=== PATIENT | male | born 1985 | race American Indian/Alaskan Native ===

== ENCOUNTER 2016-11-12 08:27 | Inpatient (IN) | payer OTHER, MEDICARE ==
[2016-11-12] MEDS ORDERED: DECADRON ONE (08:43)
[2016-11-12] MEDS ORDERED: PEPCID IV ONE ×4 (08:44→08:51)
[2016-11-12] MEDS ORDERED: BENADRYL ONE (08:45)
[2016-11-12] MEDS ORDERED: DECADRON IV ONE (08:48)
[2016-11-12] MEDS ORDERED: BENADRYL IV ONE (08:48)
--- NOTE | 2016-11-12 10:36 | Emergency Department Report ---
HPI - General Chief Complaint: Allergic Reaction Time Seen by Provider: 11/12/16 10:22 - HPI HPI: Room 18 The patient is a 31-year-old male presenting with a chief complaint of tongue swelling. The patient states last night he went to sleep in his usual state of health and at approximately 07:15 this morning he awakened and noticed pain and swelling to the left side of his tongue. Patient states she use ice to see if it would help but the swelling did not improve. The patient states he subsequently came to the ED for evaluation. The patient does admit to slight shortness of breath but denies fever, sore throat or cough. The patient denies taking any medications. Patient denies any new exposures to food or toothpaste. Location: Tongue Duration: Constant since 07:15 Quality: Pain Severity: Moderate Modifying factors: [see above] Context: [see above] Mode of transportation: [not driving] ED Past Medical Hx - Surgical History Hx Appendectomy: Yes - Family History Family history: no significant - Social History Smoking Status: Current Every Day Smoker (1/3 pack per day) Substance Use Type: None - Medications Home Medications: Home Medications Medication Instructions Recorded Confirmed Last Taken Type HYDROcodone/APAP 5-325 [[place] 1 each PO Q6HR PRN #10 tablet 05/11/14 Unknown Rx 5-325 mg TAB] Ibuprofen [Motrin] 800 mg PO Q8H PRN #14 tablet 05/11/14 Unknown Rx Cephalexin [Keflex] 500 mg PO Q6H #40 capsule 05/21/14 Unknown Rx HYDROcodone/APAP 7.5-325 [[place] 1 each PO Q6HR PRN #20 tablet 05/21/14 Unknown Rx 7.5/325 mg] Ibuprofen [Motrin] 600 mg PO Q8H PRN #60 tablet 05/21/14 Unknown Rx ED Review of Systems ROS: Stated complaint: RUT/TONGUE SWELLING Other details as noted in HPI Comment: All other systems reviewed and negative Constitutional: denies: chills, fever ENT: dental pain, other (tongue pain and swelling) Respiratory: shortness of breath Cardiovascular: denies: chest pain, palpitations Endocrine: no symptoms reported Gastrointestinal: denies: abdominal pain, nausea, diarrhea Genitourinary: denies: urgency, dysuria Musculoskeletal: denies: back pain, joint swelling, arthralgia Skin: denies: rash, lesions Neurological: denies: headache, weakness, paresthesias Psychiatric: denies: anxiety, depression Hematological/Lymphatic: denies: easy bleeding, easy bruising Physical Exam - Physical Exam Vital Signs: Vital Signs 11/12/16 11/12/16 11/12/16 08:36 08:42 08:50 Temperature 97.8 F Pulse Rate 54 L Respiratory 20 Rate Blood Pressure 126/87 O2 Sat by Pulse 100 100 100 Oximetry 11/12/16 11/12/16 11/12/16 09:00 09:10 09:20 Temperature Pulse Rate Respiratory Rate Blood Pressure 105/60 104/63 O2 Sat by Pulse 100 89 100 Oximetry 11/12/16 11/12/16 09:30 09:40 Temperature Pulse Rate Respiratory Rate Blood Pressure 109/64 109/64 O2 Sat by Pulse 100 100 Oximetry Physical Exam: GENERAL: The patient is well-developed well-nourished male sleeping on stretcher not appearing to be in acute distress. [] HEENT: Normocephalic. Atraumatic. Extraocular motions are intact. Patient has moist mucous membranes. Glossal swelling noted. No erythema or gingival ecchymosis appreciated. No trismus. Normal phonation NECK: Supple. No meningitic signs are noted. There is no adenopathy noted. No stridor CHEST/LUNGS: Clear to auscultation. There is no respiratory distress noted. HEART/CARDIOVASCULAR: Regular. There is no tachycardia. There is no gallop rub or murmur. ABDOMEN: Abdomen is soft, nontender. Patient has normal bowel sounds. There is no abdominal distention. SKIN: There is no rash. There is no edema. There is no diaphoresis. NEURO: The patient is awake, alert, and oriented. The patient is cooperative. The patient has normal speech MUSCULOSKELETAL: There is no evidence of acute injury. ED Course Vital Signs 11/12/16 11/12/16 11/12/16 08:36 08:42 08:50 Temperature 97.8 F Pulse Rate 54 L Respiratory 20 Rate Blood Pressure 126/87 O2 Sat by Pulse 100 100 100 Oximetry 11/12/16 11/12/16 11/12/16 09:00 09:10 09:20 Temperature Pulse Rate Respiratory Rate Blood Pressure 105/60 104/63 O2 Sat by Pulse 100 89 100 Oximetry 11/12/16 11/12/16 09:30 09:40 Temperature Pulse Rate Respiratory Rate Blood Pressure 109/64 109/64 O2 Sat by Pulse 100 100 Oximetry ED Medical Decision Making - Lab Data Result diagrams: 11/12/16 11:44 11/12/16 11:44 Laboratory Tests 11/12/16 11/12/16 11:44 11:44 WBC 5.8 RBC 5.43 H Hgb 14.0 Hct 44.8 MCV 83 L MCH 26 L MCHC 31 L RDW 14.8 Plt Count 70 L Lymph % (Auto) 18.3 [place] % (Auto) 3.5 Eos % (Auto) 3.2 Baso % (Auto) 0.5 Lymph # 1.1 L [place] # 0.2 Eos # 0.2 Baso # 0.0 Seg Neutrophils % 74.5 H Seg Neutrophils # 4.3 Sodium 140 Potassium 4.9 Chloride 106.2 Carbon Dioxide 22 Anion Gap 17 BUN 10 Creatinine 1.0 Estimated GFR > 60 BUN/Creatinine Ratio 10.00 Glucose 98 Calcium 8.7 - Radiology Data Radiology results: report reviewed (CT neck), image reviewed (CT neck) CT neck (read by radiologist)-unremarkable CT neck. - Differential Diagnosis angioedema, glossitis, Melo angina, Critical care attestation.: If time is entered above; I have spent that time in minutes in the direct care of this critically ill patient, excluding procedure time. ED Disposition Clinical Impression: Tongue swelling, Shortness of breath Disposition: OP ADMITTED IP TO THIS HOSP Is pt being admited?: Yes Does the pt Need Aspirin: Yes Condition: Fair Referrals: MASHA DAVIS MD [Primary Care Provider] - 3-5 Days Time of Disposition: 14:21 (hospitalist paged)
--- NOTE | 2016-11-12 11:22 | Admit Criteria Form ---
Admission Criteria Documentation: HEAD AND NECK DISEASE [facility] Clinical Indications for Admission to Inpatient Care ( Place 'X' for any and all applicable criteria): Hospital admission is needed for appropriate care of the patient because of ANY ONE of the following (1)(2): [ ]I. Severe sinusitis as indicated by ANY ONE of the following (6)(13)(21) [ ]a) Suspected PUBLIC INFORMATION RELATIONS MANAGER infection [ ]b) Bacteremia [ ]c) Hemodynamic instability [ ]d) Outpatient and observation care antibiotic treatment have failed or are not considered appropriate [ ]e) Surgical drainage needed that cannot be performed on an outpatient basis or observation. setting [ ]f) Suspected orbital involvement [ ]II. Acute glaucoma unresponsive to emergency treatment that requires medication or other treatment beyond the scope of observation care (1) [ ]III. Severe eye infection or inflammation (eg, uveitis) which is unresponsive to emergency treatment and requires medication or other treatment beyond the scope of observation care (1)(2)(3)(4) [ ]IV. Severe epistaxis requiring posterior packing (5)(6) [ ]V. Acute bacterial labyrinthitis(6)(7) [ ]. Viral labyrinthitis with symptoms uncontrollable on an outpatient or observation care basis (6)(7) [ ]VII. Severe necrotizing external otitis unresponsive to outpatient and observation care treatment(6) [ ]VIII. Otitis media requiring treatment beyond the scope of outpatient and observation care, as indicated by presence or persistence of ANY ONE of the following(6)(8)(9): [ ]a) Hemodynamic instability [ ]b) Mastoiditis [ ]c) Suspected PUBLIC INFORMATION RELATIONS MANAGER infection [ ]d) Bacteremia [ ]e) Surgical drainage needed that cannot be performed as an outpatient. or in an observation setting. [ ]IX. Epiglottitis or supraglottitis(6)(11)(12)(13)(14) [ ]X. Stridor or laryngospasm (unresponsive to emergency management) (6)(11)( 12)(13)(14) [ ]XI. Acute pharyngitis or tonsillitis and ANY ONE of the following (14)(15)( 16): [ ]a) Hemodynamic instability remaining after emergency or observation level care (as appropriate) [ ]b) Surgical drainage needed that cannot be performed in outpatient or observation setting [ ]c) Mediastinitis [ ]d) Thrombophlebitis of internal jugular vein (Lemierre syndrome) [ ]XII. Sialoadenitis and ANY ONE of the following (17) (18) [ ]a) Hemodynamic instability remaining after emergency or observation level care(as appropriate) [ ]b) Surgical drainage needed that cannot be performed in outpatient or observation setting [ ]XIII. Airway blockage or inability to swallow (6)(12)(19)(20) [ ]XIV.Complicated infection indicated by ANY ONE of the following(6)(13)(21)(22 ): [ ]a) Abscess or swelling causing airway difficulty(12) [ ]b) Bacteremia [ ]c) Hemodynamic instability [ ]d) Suspected PUBLIC INFORMATION RELATIONS MANAGER infection [ ]e) Outpatient and observation care antibiotic treatment have failed or are not considered appropriate [ ]f) Surgical drainage needed that cannot be performed on an outpatient basis or observation setting [ ]g) Other management need that cannot be performed in outpatient or observation setting: [ ]XV. Severe trauma requiring inpatient medical treatment of eye, head, pharynx, or airway (1)(23)([phone]) [ ]XVI. Ischemic optic neuropathy(11) [X]XVII.Head or Neck Disease condition and ANY ONE of the following: [ X]a) Symptom or finding for which emergency and observation care have failed or are not considered appropriate (Also use General Criteria: Observation Care as appropriate) [ ]b) Presence of ANY ONE of the following: [ ]i) A General Admission Criteria [ ]ii) A Pediatric General Admission Criteria The original [facility] content created by [facility] has been revised. The portions of the content which have been revised are identified through the use of italic text or in bold, and [facility] has neither reviewed nor approved the modified material. All other unmodified content is copyright [facility]. Please see references footnoted in the original [facility] edition 2016 Admission Criteria Met: Yes
[2016-11-12 12:00] LABS: Basophils % (Auto) 0.5 % (0.0-1.8); Eosinophils % (Auto) 3.2 % (0.0-4.3); Hematocrit 44.8 % (35.5-45.6); Mean Corpuscular HGB Conc 31 % (32-34); Mean Corpuscular Volume 83 fl (84-94); Red Blood Count 5.43 M/mm3 (3.65-5.03); Red Cell Distribution Width 14.8 % (13.2-15.2); White Blood Count 5.8 K/mm3 (4.5-11.0)
[2016-11-12 12:01] LABS: Mean Corpuscular Hemoglobin 26 pg (28-32); Platelet Count 70 K/mm3 (140-440)
[2016-11-12 12:19] LABS: Anion Gap 17 mmol/L; Blood Urea Nitrogen 10 mg/dL (9-20); Calcium 8.7 mg/dL (8.4-10.2); Carbon Dioxide 22 mmol/L (22-30); Chloride 106.2 mmol/L (98-107); Glucose 98 mg/dL (75-100); Potassium 4.9 mmol/L (3.6-5.0); Sodium 140 mmol/L (137-145)
[2016-11-12] MEDS ORDERED: NACL ONE (13:28)
--- NOTE | 2016-11-12 14:13 | Cat Scan Report ---
CT NECK WITH CONTRAST: HISTORY: Tongue swelling, angioedema. TECHNIQUE: Helical CT following IV contrast. Sagittal and coronal reformatted images. FINDINGS: The parotid and submandibular glands are normal. The carotid sheaths are intact. There is no evidence of adenopathy within the neck. The thyroid gland is normal. The glottic structures are normal. The airway is patent. Strap musculature is unremarkable. Hyoid bone and thyroid cartilage are intact. IMPRESSION: Unremarkable CT neck.
--- NOTE | 2016-11-12 15:47 | History and Physical Report ---
History of Present Illness Date of examination: 11/12/16 Date of admission: 11/12/16 Chief complaint: Swelling of tongue History of present illness: 31 Y/o AAM comes in for swelling of tongue and lips from AM.Attributes it to Ibuprofen.Not on BREE inhibitors.No difficulty in swallowing .No difficulty in breathing. Past History Past Medical History: No medical history Medications and Allergies Allergies Allergy/AdvReac Type Severity Reaction Status Date / Time No Known Allergies Allergy Unverified 05/11/14 11:36 Home Medications Medication Instructions Recorded Confirmed Last Taken Type Ibuprofen [Motrin] 600 mg PO Q8H PRN #60 tablet 05/21/14 11/12/16 11/11/16 Rx Review of Systems All systems: negative Ears, nose, mouth and throat: swelling in mouth (Tongue and lips-swollen but not significantly) Exam - Constitutional Vitals: Temp Pulse Resp BP Pulse Ox 97.8 F 54 L 16 105/58 100 11/12/16 08:36 11/12/16 08:36 11/12/16 11:47 11/12/16 13:10 11/12/16 13:10 General appearance: Present: no acute distress, well-nourished - EENT Eyes: Present: PERRL ENT: hearing intact, clear oral mucosa, other (Swelling of Tongoe mild to moderate Also lips) - Neck Neck: Present: supple, normal ROM - Respiratory Respiratory effort: normal Respiratory: bilateral: CTA - Cardiovascular Heart Sounds: Present: S1 & S2. Absent: rub, click - Extremities Extremities: pulses symmetrical, No edema Peripheral Pulses: within normal limits - Abdominal General gastrointestinal: Present: soft, non-tender, non-distended, normal bowel sounds Male genitourinary: Present: normal - Integumentary Integumentary: Present: clear, warm, dry - Musculoskeletal Musculoskeletal: gait normal, strength equal bilaterally - Psychiatric Psychiatric: appropriate mood/affect, intact judgment & insight - Neurologic Neurologic: CNII-XII intact, moves all extremities Results - Labs CBC & Chem 7: 11/12/16 11:44 11/12/16 11:44 Labs: Abnormal lab results 11/12/16 Range/Units 11:44 RBC 5.43 H (3.65-5.03) M/mm3 MCV 83 L (84-94) fl MCH 26 L (28-32) pg MCHC 31 L (32-34) % Plt Count 70 L (140-440) K/mm3 Lymph # 1.1 L (1.2-5.4) K/mm3 Seg Neutrophils % 74.5 H (40.0-70.0) % Short CBC 11/12/16 Range/Units 11:44 WBC 5.8 (4.5-11.0) K/mm3 Hgb 14.0 (11.8-15.2) gm/dl Hct 44.8 (35.5-45.6) % Plt Count 70 L (140-440) K/mm3 BMP 11/12/16 11:44 Sodium 140 Potassium 4.9 Chloride 106.2 Carbon Dioxide 22 BUN 10 Creatinine 1.0 Glucose 98 Calcium 8.7 Assessment and Plan - Patient Problems (1) Angioedema Current Visit: Yes Status: Acute Qualifiers: Encounter type: initial encounter Qualified Code(s): T78.3XXA - Angioneurotic edema, initial encounter Plan to address problem: Mild to moderate.Will observe for one day and discharge on oral prednisone and pepcid. Not to use NSAIDS in future. Or BREE inhibitors. (2) DVT prophylaxis Current Visit: Yes Status: Acute Plan to address problem: Lovenox
[2016-11-12] MEDS ORDERED: BENADRYL IV PRN (16:08)
[2016-11-12] MEDS ORDERED: NACL 0.9% 1000 ML 1,000 ML IV ONE (17:15)
[2016-11-12] MEDS: LOVENOX SUB-Q SCH (17:21)
[2016-11-12 22:29] VITALS: BP 132/61
[2016-11-12] MEDS: PEPCID IV SCH (22:46)
[2016-11-13] MEDS: PEPCID IV SCH (09:55)
[2016-11-13] MEDS: LOVENOX SUB-Q SCH (09:56)
--- NOTE | 2016-11-13 12:52 | Discharge Summary ---
Providers - Providers Date of Admission: 11/12/16 14:21 Date of discharge: 11/13/16 Attending physician: KAE LAL MD Primary care physician: MASHA DAVIS Hospitalization Reason for admission: angioedema Condition: Stable Hospital course: The patient is a 31-year-old male presenting with a chief complaint of tongue swelling. The patient states last night he went to sleep in his usual state of health and at approximately 07:15 this morning he awakened and noticed pain and swelling to the left side of his tongue. Patient states she use ice to see if it would help but the swelling did not improve. The patient states he subsequently came to the ED for evaluation. The patient does admit to slight shortness of breath but denies fever, sore throat or cough. The patient denies taking any medications. Patient denies any new exposures to food or toothpaste. The only new medication he has taken his ibuprofen. He denies any use of Nathan inhibitor or any new food supplements. Patient was started on steroid therapy with PPI and also Benadryl with remarkable improvement this morning his swelling is significantly down to nonexistent she is tolerated diet also started for full border of this afternoon and tolerated it well. He is stable for discharge I have advised him to avoid NSAIDs at this time until evaluated by PCP and possibly may need allergy testing as we cannot pinpoint a particular allergen neck caused this. Imaging of the neck was negative. Discharge diagnosis * Idiopathic angioedema * Acute respiratory failure secondary to angioedema-now resolved Disposition: DISCHARGED TO HOME OR SELFCARE Time spent for discharge: 35 mins Core Measure Documentation - Palliative Care Palliative Care/ Comfort Measures: Not Applicable - Core Measures Any of the following diagnoses?: none - VTE Discharge Requirements Deep Vein Thrombosis/Pulmonary Embolism Present on Admission: No Exam - Physical Exam Narrative exam: VITAL SIGNS: Reviewed. GENERAL: The patient appeared well nourished and normally developed. Vital signs as documented. HEAD: No signs of head trauma. EYES: Pupils are equal. Extraocular motions intact. EARS: Hearing grossly intact. MOUTH: Oropharynx is normal. NECK: No adenopathy, no JVD. Supple CHEST: Chest with clear breath sounds bilaterally. No wheezes, rales, or rhonchi. CARDIAC: Regular rate and rhythm. S1 and S2, without murmurs, gallops, or rubs. VASCULAR: No Edema. Peripheral pulses normal and equal in all extremities. ABDOMEN: Soft, without detectable tenderness. No sign of distention. No rebound or guarding, and no masses palpated. Bowel Sounds normal. MUSCULOSKELETAL: Good range of motion of all major joints. Extremities without clubbing, cyanosis or edema. NEUROLOGIC EXAM: Alert and oriented x 3. No focal sensory or strength deficits. Speech normal. Follows commands. PSYCHIATRIC: Mood normal. SKIN: No rash or lesions. - Constitutional Vitals: Temp Pulse Resp BP Pulse Ox 98.7 F 76 18 132/61 99 11/12/16 22:28 11/12/16 22:28 11/12/16 22:28 11/12/16 22:28 11/12/16 22:28 Plan Activity: advance as tolerated Diet: regular Follow up with: MASHA DAVIS MD [Primary Care Provider] - 3-5 Days Prescriptions: Famotidine [Pepcid] 20 mg PO BID #20 tablet Prednisone [predniSONE 5 mg (6-Day Pack, 21 Tabs)] 5 mg PO .TAPER #1 tab.ds.pk
== END 2016-11-13 14:04 | disposition home or self-care (01) | DRG 915 ==
LOC: ED 08:27 → 3A 14:21
PROVIDERS: ADMIT Internal Medicine; ATTEND Internal Medicine
DX: T78.3XXA Angioneurotic edema, initial encounter (principal); J96.00 Acute respiratory failure, unspecified whether with hypoxia or hypercapnia; F17.210 Nicotine dependence, cigarettes, uncomplicated; Z90.49 Acquired absence of other specified parts of digestive tract; Z79.899 Other long term (current) drug therapy
CPT/HCPCS: 36415; 70491; 80048; 85025; 96374; 96375; J1100; J1200; J1650; J2930; J7030; Q9967

== ENCOUNTER 2017-10-17 17:22 | Emergency (ER) | payer MEDICARE, OTHER ==
[2017-10-17] MEDS ORDERED: ceFAZolin 1 GM in NACL 0.9% 100 ML IV ONE (17:46)
[2017-10-17] MEDS ORDERED: ZOFRAN IV ONE (17:48)
[2017-10-17] MEDS ORDERED: MORPHINE IV ONE ×2 (17:48→19:12)
[2017-10-17] MEDS ORDERED: ZOFRAN ONE (17:50)
[2017-10-17] MEDS ORDERED: MORPHINE ONE (17:51)
[2017-10-17] MEDS ORDERED: BOOSTRIX IM ONE (18:45)
[2017-10-17] MEDS ORDERED: TENIVAC IM ONE (19:00)
[2017-10-17] MEDS ORDERED: ceFAZolin 1 GM in NACL 0.9% 20 ML IV ONE (19:00)
[2017-10-17] MEDS ORDERED: NACL 0.9% IR ONE (20:12)
[2017-10-17] MEDS ORDERED: XYLOCAINE 1% 20 mL ONE (20:56)
--- NOTE | 2017-10-17 21:31 | XRay Report ---
FINAL REPORT PROCEDURE: XRAY FINGER RIGHT TECHNIQUE: RIGHT hand radiographs, AP, lateral, and oblique views. CPT 16397-AS HISTORY: rt middle finger injury COMPARISON: No prior studies are available for comparison. FINDINGS: Fracture (s) and/or Dislocation(s): There is a comminuted fracture involving the 3rd proximal phalanx. There are associated irregular radiopaque foreign body fragments.. Alignment: Joint alignment is within normal limits.. Joint space(s): Normal . Soft tissues: Normal . Bone mineralization: Normal . Foreign bodies: Irregular radiopaque foreign body fragments are identified in relation to the 3rd proximal phalangeal fracture largest measuring 4 millimeters.. IMPRESSION: Comminuted acute fracture 3rd proximal phalanx associated with foreign body fragments..
[2017-10-17 22:22] LABS: Amphetamine Screen,Urine PRESUMPTIVE NEGATIVE; Benzodiazepines Screen,Urine PRESUMPTIVE NEGATIVE; Cocaine Screen,Urine PRESUMPTIVE NEGATIVE; Methadone Screen,Urine PRESUMPTIVE NEGATIVE
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
[2017-10-17 22:37] LABS: Cannabinoid Screen,Urine PRESUMPTIVE POSITIVE; Opiate Screen,Urine PRESUMPTIVE POSITIVE
[2017-10-17] MEDS ORDERED: MARCAINE 0.5% 30 ML INFILTRATI ONE (23:19)
[2017-10-17] MEDS ORDERED: MARCAINE 0.5% INFILTRATI ONE (23:29)
[2017-10-17] MEDS ORDERED: XYLOCAINE 1% 20 mL INFILTRATI ONE (23:30)
[2017-10-18] MEDS ORDERED: ZOFRAN IV ONE (02:14)
[2017-10-18 02:50] VITALS: BP 136/84
== END 2017-10-18 02:30 | disposition home or self-care (01) ==
LOC: ED 17:22
DX: S62.612B Displaced fracture of proximal phalanx of right middle finger, initial encounter for open fracture (principal); S61.401A Unspecified open wound of right hand, initial encounter; W34.09XA Accidental discharge from other specified firearms, initial encounter; Y93.89 Activity, other specified; Y92.89 Other specified places as the place of occurrence of the external cause; Y99.8 Other external cause status
CPT/HCPCS: 29125; 73140; 80307; 90471; 90715; 96365; 96366; 96375; 96376; 99284; J0690; J2270; J2405; 90714

== ENCOUNTER 2017-10-19 18:18 | Emergency (ER) | payer SELFPAY ==
[2017-10-19 19:04] VITALS: BP 137/92
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
== END 2017-10-20 09:11 | disposition left against medical advice (07) ==
LOC: ED 18:18
DX: Z53.21 Procedure and treatment not carried out due to patient leaving prior to being seen by health care provider (principal)

== ENCOUNTER 2018-04-23 16:42 | Emergency (ER) | payer MEDICARE, OTHER ==
[2018-04-23] MEDS ORDERED: TORADOL IM ONE (18:05)
--- NOTE | 2018-04-23 18:21 | Emergency Department Report ---
ED Back Pain/Injury HPI - General Chief Complaint: Back Pain/Injury Stated Complaint: BACK PAIN Time Seen by Provider: 04/23/18 18:04 Source: patient, family Limitations: No Limitations - History of Present Illness Initial Comments: This is a 33-year-old male nontoxic, well nourished in appearance, no acute signs of distress presents to the ED with c/o of acute on chronic upper back pain x2 months. 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 Patient states that pain radiates through to his right upper extremity and tingling. Patient denies any numbness. Patient denies any trauma. Denies any bladder or bowel instability. Patient denies any urinary symptoms. Denies any fever, chills, nausea, vomiting, headache, stiff neck, chest pain or shortness of breath. Patient denies any numbness. Denies any allergies. Denies significant past medical history. MD Complaint: back pain -: month(s) (2) Similar Symptoms Previously: Yes Place: work Radiation: other (right upper arm) Severity: mild Severity scale (0 -10): 8 Quality: aching Consistency: constant Improves With: immobilization, supine Worsens With: movement Context: turning/twisting Associated Symptoms: denies: confusion, weakness, chest pain, numbness, difficulty walking, cough, difficulty urinating, diaphoresis, incontinence, fever/chills, constipation, headaches, abdominal pain, loss of appetite, malaise , nausea/vomiting, rash, seizure, shortness of breath, syncope - Related Data Previous Rx's Medication Instructions Recorded Last Taken Type Cephalexin [Keflex] 500 mg PO Q6HR #24 capsule 10/18/17 Unknown Rx oxyCODONE /ACETAMINOPHEN [Percocet 2 tab PO Q6HR PRN #20 tablet 10/18/17 Unknown Rx 5/325] Cyclobenzaprine [Flexeril] 10 mg PO BID PRN #14 tablet 04/23/18 Unknown Rx Ibuprofen [Motrin] 600 mg PO Q8H PRN #30 tablet 04/23/18 Unknown Rx Allergies Allergy/AdvReac Type Severity Reaction Status Date / Time No Known Allergies Allergy Unverified 05/11/14 11:36 ED Review of Systems ROS: Stated complaint: BACK PAIN Other details as noted in HPI Constitutional: denies: chills, fever Eyes: denies: eye pain, eye discharge, vision change ENT: denies: ear pain, throat pain Respiratory: denies: cough, shortness of breath, wheezing Cardiovascular: denies: chest pain, palpitations Endocrine: no symptoms reported Gastrointestinal: denies: abdominal pain, nausea, diarrhea Genitourinary: denies: urgency, dysuria Musculoskeletal: back pain. denies: joint swelling, arthralgia Skin: denies: rash, lesions Neurological: denies: headache, weakness, paresthesias Psychiatric: denies: anxiety, depression Hematological/Lymphatic: denies: easy bleeding, easy bruising ED Past Medical Hx - Past Medical History Hx Congestive Heart Failure: No Hx Diabetes: No Hx Asthma: No Hx COPD: No - Surgical History Hx Appendectomy: Yes (11 yrs old) - Social History Smoking Status: Current Every Day Smoker Substance Use Type: None - Medications Home Medications: Home Medications Medication Instructions Recorded Confirmed Last Taken Type Cephalexin [Keflex] 500 mg PO Q6HR #24 capsule 10/18/17 Unknown Rx oxyCODONE /ACETAMINOPHEN [Percocet 2 tab PO Q6HR PRN #20 tablet 10/18/17 Unknown Rx 5/325] Cyclobenzaprine [Flexeril] 10 mg PO BID PRN #14 tablet 04/23/18 Unknown Rx Ibuprofen [Motrin] 600 mg PO Q8H PRN #30 tablet 04/23/18 Unknown Rx ED Physical Exam - General Limitations: No Limitations General appearance: alert, in no apparent distress - Head Head exam: Present: atraumatic, normocephalic - Eye Eye exam: Present: normal appearance Pupils: Present: normal accommodation - ENT ENT exam: Present: normal exam, mucous membranes moist - Neck Neck exam: Present: normal inspection, full ROM. Absent: tenderness, meningismus, lymphadenopathy - Respiratory Respiratory exam: Present: normal lung sounds bilaterally. Absent: respiratory distress, wheezes, rales, rhonchi, stridor, chest wall tenderness, accessory muscle use, decreased breath sounds, prolonged expiratory - Cardiovascular Cardiovascular Exam: Present: regular rate, normal rhythm, normal heart sounds. Absent: bradycardia, tachycardia, irregular rhythm, systolic murmur, diastolic murmur, rubs, gallop - GI/Abdominal GI/Abdominal exam: Present: soft, normal bowel sounds - Rectal Rectal exam: Present: deferred - Extremities Exam Extremities exam: Present: normal inspection, full ROM, normal capillary refill. Absent: tenderness - Back Exam Back exam: Present: normal inspection, full ROM, paraspinal tenderness ( cervical paraspinal). Absent: tenderness, CVA tenderness (R), CVA tenderness (L ), muscle spasm, vertebral tenderness, rash noted - Neurological Exam Neurological exam: Present: alert, oriented X3, normal gait - Psychiatric Psychiatric exam: Present: normal affect, normal mood - Skin Skin exam: Present: warm, dry, intact, normal color. Absent: rash ED Course Vital Signs 04/23/18 04/23/18 16:44 18:24 Temperature 98.8 F 98.6 F Pulse Rate 78 64 Respiratory 15 18 Rate Blood Pressure 98/50 Blood Pressure 134/81 [Left] O2 Sat by Pulse 98 100 Oximetry - Reevaluation(s) Reevaluation #1: 04/23/18 18:26 Patient is speaking in full sentences with no signs of distress noted. ED Medical Decision Making - Medical Decision Making This is a 33-year-old male that presents with upper back strain. Patient is stable was examined by me. There is no spinal tenderness. There is no cauda equina syndrome during examination. No bladder or bowel instability. Patient received Toradol 30 mg IM in the ED which preceded his symptoms has resolved and subsided. Patient is discharged with muscle relaxant and Motrin. Patient was instructed not to operate any machinery while taking muscle relaxant as they cause her drowsiness. Patient was referred to Follow-up with a primary care doctor in 3-5 days or if symptoms worsen and continue return to emergency room as soon as possible. At time of discharge, the patient does not seem toxic or ill in appearance. No acute signs of distress noted. Patient agrees to discharge treatment plan of care. No further questions noted by the patient. This chart is dictated with using [employer] Critical care attestation.: If time is entered above; I have spent that time in minutes in the direct care of this critically ill patient, excluding procedure time. ED Disposition Clinical Impression: Cervical muscle strain Qualifiers: Encounter type: initial encounter Qualified Code(s): S16.1XXA - Strain of muscle, fascia and tendon at neck level, initial encounter Disposition: TO HOME OR SELFCARE Is pt being admited?: No Does the pt Need Aspirin: No Condition: Stable Instructions: Muscle Strain (ED), Cyclobenzaprine (By mouth), Ibuprofen (By mouth) Additional Instructions: Follow-up with your primary care doctor in 3-5 days or if symptoms worsen such as bladder or bowel stability, chest pain, short of breath, numbness or tingling sensation in extremities, headache, dizziness, visual changes, nausea vomiting, or abdominal pain, return back to emergency room as was possible. Take ibuprofen and Flexeril as prescribed. Do not operate heavy machinery while taking Flexeril due to sedation Prescriptions: Cyclobenzaprine [Flexeril] 10 mg PO BID PRN #14 tablet PRN Reason: Muscle Spasm Ibuprofen [Motrin] 600 mg PO Q8H PRN #30 tablet PRN Reason: Pain Referrals: MASHA DAVIS MD [Primary Care Provider] - 3-5 Days PRIMARY CAREMD [Referring] - 3-5 Days CIARRA PRESCOTT MD [Staff Physician] - 3-5 Days [facility] [Outside] - 3-5 Days [facility] [Outside] - 3-5 Days Forms: Work/School Release Form(ED)
[2018-04-23 18:24] VITALS: BP 134/81
== END 2018-04-23 18:34 | disposition home or self-care (01) ==
LOC: ED 16:42
DX: S16.1XXA Strain of muscle, fascia and tendon at neck level, initial encounter (principal); F17.200 Nicotine dependence, unspecified, uncomplicated; X50.9XXA Other and unspecified overexertion or strenuous movements or postures, initial encounter; Y93.89 Activity, other specified; Y92.89 Other specified places as the place of occurrence of the external cause; Y99.8 Other external cause status
CPT/HCPCS: 96372; 99282; J1885